=== PATIENT | female | born 1980 | race Caucasian/White ===

== ENCOUNTER 2019-05-19 12:54 | Emergency (ER) | payer OTHER, SELFPAY ==
[2019-05-19 12:56] VITALS: BP 143/82; PULSE 106; RESP 18; TEMP 36.4; O2SAT 97; BMI 39.4
[2019-05-19 13:39] LABS: RBC Urine None Seen (0-5/HPF)
[2019-05-19 14:07] LABS: Bacteria Urine Moderate (10-30); Squamous Epithelial Cell Urine 5-10 /HPF (0-5/HPF); WBC Urine 1-5/HPF (0-5/HPF)
[2019-05-19 14:49] VITALS: BP 111/72; PULSE 90; RESP 18; O2SAT 97
[2019-05-19 15:21] LABS: RBC Urine None Seen (0-5/HPF)
[2019-05-19 15:24] LABS: Appearance Urine UA CLEAR; Bilirubin Urine UA NEGATIVE (NEGATIVE); Color Urine UA YELLOW; Glucose Urine UA NEGATIVE (Negative); Ketones Urine UA TRACE (NEGATIVE); Leukocyte Esterase Urine UA NEGATIVE (NEGATIVE); Nitrite Urine UA NEGATIVE (Negative); Occult Blood Urine UA TRACE-INTACT (Negative); Protein Urine UA 2+ (Negative); Specific Gravity Urine UA 1.025 (1.000-1.035); Urobilinogen Urine UA 0.2 E.U./dL (0.2)
[2019-05-19 15:25] LABS: pH Urine UA 5.5 (4.5-8.0)
[2019-05-19 15:38] LABS: Bacteria Urine Few (2-10); Culture Indicated Urine Cult Not Indicated; Squamous Epithelial Cell Urine 1-5 /HPF (0-5/HPF); WBC Urine 0-1/HPF (0-5/HPF)
[2019-05-19 15:44] LABS: Influenza A - CEPHEID Flu A NEGATIVE (NEGATIVE); Influenza B - CEPHEID Flu B POSITIVE (NEGATIVE)
--- NOTE | 2019-05-19 16:03 | ED.FEVER ---
HPI - Fever <ISAAC Hay - Last Filed: 05/19/19 16:27> General Chief Complaint: Abdominal Pain Stated Complaint: States Flu and Possible Kidney Infection Time Seen by Provider: 05/19/19 14:08 Source: patient and family Mode of arrival: Ambulatory Limitations: no limitations History of Present Illness HPI Narrative: The patient is a 38-year-old female nonsmoker who denies pertinent medical history was a vaccinated for the flu presents with a chief complaint of fevers, muscle aches, back pain for the past 3 days. She states she vomited twice a few days ago. She is concerned about a kidney infection given her back pain which she states is bilateral. She states it comes and goes. Has not taken anything to feel better. Denies any abdominal pain, current nausea vomiting, diarrhea. She complains of a dry cough, denies any ear pain or sore throat or shortness of breath. Denies any dysuria urgency or frequency. Related Data Allergies Allergy/AdvReac Type Severity Reaction Status Date / Time No Known Drug Allergies Allergy Verified 05/19/19 13:00 Review of Systems <ISAAC Hay - Last Filed: 05/19/19 16:27> Review of Systems Narrative: GENERAL: See HPI HEENT: Denies sinus pain, ear pain, sore throat, difficulty swallowing, dizziness. RESPIRATORY: Denies dyspnea, cough, wheezing, hemoptysis, sputum. CARDIOVASCULAR: Denies chest pain, palpitations, orthopnea, edema, GASTROINTESTINAL: Denies nausea, vomiting, abdominal pain, diarrhea, constipation, melena. : See HPI MUSCULOSKELETAL: denies weakness, joint pain, or bony pain SKIN: Denies rash, skin lesions, or other NEUROLOGIC: Denies weakness, headache, numbness, change in speech, confusion, seizures, incoordination. PSYCHIATRIC: No concerning psychosocial issues. 12 point review of systems is negative except for those stated above Patient History <ISAAC Hay - Last Filed: 05/19/19 16:27> Social History Smoking Status: Never smoker Smoking Status: Never smoker alcohol intake frequency: holidays/special occasions only Substance Use Type: does not use Exam <ISAAC Hay - Last Filed: 05/19/19 16:27> Narrative Exam Narrative: GENERAL: This is a well-nourished, well-developed patient, in no acute distress HEAD: Atraumatic. Normocephalic. No temporal or scalp tenderness. EYES: Pupils equal round and reactive. Extraocular motions intact. No scleral icterus. No injection or drainage. ENT: Nose without bleeding, purulent drainage or septal hematoma. Throat without erythema, tonsillar hypertrophy or exudate. Uvula midline. Airway patent. NECK: Trachea midline. No JVD or lymphadenopathy. Supple, nontender, no meningeal signs. CARDIOVASCULAR: Regular rate and rhythm without murmurs, gallops, or rubs. RESPIRATORY: Clear to auscultation. Breath sounds equal bilaterally. No wheezes, rales, or rhonchi. Dry cough. No increased respiratory effort. Speaking full sentences. GASTROINTESTINAL: Abdomen soft, non-tender, nondistended. No hepato-splenomegaly, or palpable masses. No guarding. EXTREMITIES: No clubbing, cyanosis, or edema. No joint tenderness, effusion, or edema noted. BACK: Nontender without deformity or crepitance. No flank tenderness. No CVA tenderness bilaterally. NEURO: AOx3. SKIN: No rash or erythema on visible skin Initial Vital Signs Initial Vital Signs: Vital Signs Temperature 97.6 F 05/19/19 12:56 Pulse Rate 106 H 05/19/19 12:56 Respiratory Rate 18 05/19/19 12:56 Blood Pressure 143/82 H 05/19/19 12:56 Pulse Oximetry 97 05/19/19 12:56 <Sosa Ribera MD - Last Filed: 05/19/19 18:00> Initial Vital Signs Initial Vital Signs: Vital Signs Temperature 97.6 F 05/19/19 12:56 Pulse Rate 106 H 05/19/19 12:56 Respiratory Rate 18 05/19/19 12:56 Blood Pressure 143/82 H 05/19/19 12:56 Pulse Oximetry 97 05/19/19 12:56 Course <ISAAC Hay - Last Filed: 05/19/19 16:27> Orders Ordered: ED Orders 05/19/19 13:35 Urine Microscopic Stat 05/19/19 14:44 Complete Blood Count AUTO DIFF Stat Comprehensive Metabolic Panel Stat 05/19/19 15:00 Urinalysis and Microscopic Stat 05/19/19 15:11 Influenza A & B (PCR) Stat Vital Signs Vital signs: Vital Signs - 8 hr 05/19/19 12:56 05/19/19 14:49 05/19/19 16:27 Temperature 97.6 F Pulse Rate 106 H 90 84 Respiratory Rate 18 18 18 Blood Pressure 143/82 H Blood Pressure [Left Arm] 111/72 111/77 Pulse Oximetry 97 97 97 <Sosa Ribera MD - Last Filed: 05/19/19 18:00> Orders Ordered: ED Orders 05/19/19 13:35 Urine Microscopic Stat 05/19/19 14:44 Complete Blood Count AUTO DIFF Stat Comprehensive Metabolic Panel Stat 05/19/19 15:00 Urinalysis and Microscopic Stat 05/19/19 15:11 Influenza A & B (PCR) Stat Vital Signs Vital signs: Vital Signs - 8 hr 05/19/19 12:56 05/19/19 14:49 05/19/19 16:27 Temperature 97.6 F Pulse Rate 106 H 90 84 Respiratory Rate 18 18 18 Blood Pressure 143/82 H Blood Pressure [Left Arm] 111/72 111/77 Pulse Oximetry 97 97 97 MDM - Fever <MARTIN Hay - Last Filed: 05/19/19 16:27> Lab Data Labs: Lab Results 05/19/19 05/19/19 05/19/19 Range/Units 13:35 15:00 15:11 Urine Color Yellow Urine Appearance Clear Urine pH 5.5 (4.5-8.0) Ur Specific [place] 1.025 (1.000-1.035) Urine Protein 2+ H (Negative) Urine Glucose (UA) Negative (Negative) g/dL Urine Ketones Trace H (NEGATIVE) Urine Occult Blood Trace-intact (Negative) Urine Nitrate Negative (Negative) Urine Bilirubin Negative (NEGATIVE) Urine Urobilinogen 0.2 (0.2) E.U./dL Ur Leukocyte Esterase Negative (NEGATIVE) Urine RBC None seen None seen (0-5/HPF) Urine WBC 1-5/hpf 0-1/hpf (0-5/HPF) Ur Squamous Epith Cells 5-10 /hpf H 1-5 /hpf (0-5/HPF) Urine Bacteria Moderate (10-30) H Few (2-10) H (None) Ur Culture Indicated? Culture not indicate Cult not indicated Micro UA Comment Influenza A (RT-PCR) Flu a negative (NEGATIVE) Influenza B (RT-PCR) Flu b positive H (NEGATIVE) Point of Care Testing Test Results Negative Urine Dip Bedside Urine Glucose 100 mg/dl Bedside Urine Bilirubin + 1 Bedside Urine Ketone +/- 5 Urine Specific [place] 1.025 Bedside Urine Occult Blood - Negative Bedside Urine pH 6.0 Bedside Urine Protein ++ 100 Bedside Urine Urobilinogen +/- 1mg Bedside Urine Nitrite - Negative Bedside Urine Leukocytes +/- 15 Esterase MDM Narrative Medical decision making narrative: The patient is a 38-year-old female who presents with a chief complaint of fevers, concern for kidney infection related to back pain. She has no signs of infection on urinalysis, decreasing my suspicion for pyelonephritis. She was very concerned about kidney function, then states that she does not want labs done. I believe that her back pain and muscle aches may be related to her positive. She test positive for influenza B. She is out of the Tamiflu window. Discussed at length pushing fluids, [id number] measures as needed and able, follow-up with primary care provider. Discussed coming back to the ER for any acute concerns. Patient has no questions or concerns upon discharge and states understanding of return precautions as well as follow-up care. <Sosa Ribera MD - Last Filed: 05/19/19 18:00> Lab Data Labs: Lab Results 05/19/19 05/19/19 05/19/19 Range/Units 13:35 15:00 15:11 Urine Color Yellow Urine Appearance Clear Urine pH 5.5 (4.5-8.0) Ur Specific [place] 1.025 (1.000-1.035) Urine Protein 2+ H (Negative) Urine Glucose (UA) Negative (Negative) g/dL Urine Ketones Trace H (NEGATIVE) Urine Occult Blood Trace-intact (Negative) Urine Nitrate Negative (Negative) Urine Bilirubin Negative (NEGATIVE) Urine Urobilinogen 0.2 (0.2) E.U./dL Ur Leukocyte Esterase Negative (NEGATIVE) Urine RBC None seen None seen (0-5/HPF) Urine WBC 1-5/hpf 0-1/hpf (0-5/HPF) Ur Squamous Epith Cells 5-10 /hpf H 1-5 /hpf (0-5/HPF) Urine Bacteria Moderate (10-30) H Few (2-10) H (None) Ur Culture Indicated? Culture not indicate Cult not indicated Micro UA Comment Influenza A (RT-PCR) Flu a negative (NEGATIVE) Influenza B (RT-PCR) Flu b positive H (NEGATIVE) Point of Care Testing Test Results Negative Urine Dip Bedside Urine Glucose 100 mg/dl Bedside Urine Bilirubin + 1 Bedside Urine Ketone +/- 5 Urine Specific [place] 1.025 Bedside Urine Occult Blood - Negative Bedside Urine pH 6.0 Bedside Urine Protein ++ 100 Bedside Urine Urobilinogen +/- 1mg Bedside Urine Nitrite - Negative Bedside Urine Leukocytes +/- 15 Esterase Discharge Plan Departure Patient Disposition: Home Clinical Impression: Influenza B Discharge Date/Time: 05/19/19 16:31 Instructions: DI for Influenza -- Adult Activity Restrictions/Additional Instructions: You tested positive for flu B today. Please rest, push fluids use [id number] measures as needed and able. Please follow-up with primary care provider in a few days. Please come back to the emergency department for any acute concerns such as inability keep down fluids shortness of breath etc. Referrals: Santos Melendez CNP [Primary Care Provider] - Stand Alone Forms: Work Release Note
[2019-05-19 16:27] VITALS: BP 111/77; PULSE 84; RESP 18; O2SAT 97
== END 2019-05-19 16:31 | disposition home or self-care (01) ==
PROVIDERS: Emergency Medicine; Emergency Provider Nurse Practitioner Family; PCP Registered Nurse Diabetes Educator
DX: J10.1 Influenza due to other identified influenza virus with other respiratory manifestations (principal)
CPT/HCPCS: 81001; 81003; 81015; 81025; 87502; 99282

== ENCOUNTER 2020-02-05 09:53 | Emergency (ER) | payer OTHER, SELFPAY ==
[2020-02-05 10:02] VITALS: BP 131/101; PULSE 72; RESP 16; TEMP 36.7; O2SAT 100; BMI 43.6
[2020-02-05] MEDS: ACETAMINOPHEN 325 MG TABLET 975 MG PO (10:07)
[2020-02-05] MEDS: IBUPROFEN 400 MG TABLET 800 MG PO (10:07)
--- NOTE | 2020-02-05 10:26 | ED_ITS ---
HPI - Back Pain/Injury General Chief Complaint: Back Pain/Injury Stated Complaint: Woke up with sore back . feels like its pinching Time Seen by Provider: 02/05/20 10:10 Source: patient Mode of arrival: Ambulatory Limitations: no limitations History of Present Illness HPI Narrative: The patient is a 39-year-old female who presents with sudden onset of low back pain. She thinks that she picked up her quite sturdy 4-year-old who weighs about 50 lb 2 days ago and twisted and put him on the deck. Yesterday she started to notice some increased pain and last night when she was rolling over in bed cocaine pain became quite severe she had to get up in use the restroom and was unable to walk. She has no changes in bowel or bladder habits. Now that she has been up and moving and has Toradol and Tylenol in her system she is feeling better. She seems to be able to stand. No numbness tingling or weakness in her leg at this time. She said previously whenever she stood on her legs she was unable to do so due to pain MD Complaint: back pain Onset (ago): day(s) Duration: now resolved Location: lumbar spine Radiation: right leg Related Data Previous Rx's Medication Instructions Recorded cyclobenzaprine 5 mg PO TID PRN #10 tab 02/05/20 Allergies Allergy/AdvReac Type Severity Reaction Status Date / Time No Known Drug Allergies Allergy Verified 02/05/20 10:05 Review of Systems Review of Systems Narrative: GENERAL: Denies chills, fatigue, malaise, fever, sweats, travel HEENT: Denies sinus pain, ear pain, sore throat, difficulty swallowing, neck pain RESPIRATORY: Denies dyspnea, cough, wheezing, hemoptysis, sputum. CARDIOVASCULAR: Denies chest pain, palpitations, orthopnea, edema GASTROINTESTINAL: Denies nausea, vomiting, abdominal pain, diarrhea, constipation, melena. : Denies dysuria, frequency, incontinence, hematuria, urinary retention, flank pain. MUSCULOSKELETAL: Back pain see HPI SKIN: No rash, no erythema, no pruritus NEUROLOGIC: Denies weakness, dizziness, headache, numbness, change in speech, confusion PSYCHIATRIC: No concerning psychosocial issues. 12 point review of systems is negative except for those stated above and HPI Patient History Social History (Reviewed 02/05/20 @ 10:37 by TRESA Steele Smoking Status: Never smoker Smoking Status: Never smoker alcohol intake frequency: holidays/special occasions only Substance Use Type: does not use Exam Initial Vital Signs Initial Vital Signs: Vital Signs Temperature 98.0 F 02/05/20 10:02 Pulse Rate 72 02/05/20 10:02 Respiratory Rate 16 02/05/20 10:02 Blood Pressure 131/101 H 02/05/20 10:02 Pulse Oximetry 100 02/05/20 10:02 GENERAL: Overweight female and in no acute distress. HEENT: Head atraumatic,EOMI, pupils reactive, face symmetric, moist mucous membranes CARDIOVASCULAR: Peripheral pulses intact RESPIRATORY: Speaks in full sentences without difficulty EXTREMITIES: Normal range of motion, no clubbing or edema. Neurovascularly intact BACK: No midline tenderness, able to stand no pain symptoms seemed to be completely resolved NEUROLOGICAL: Alert and oriented x4.Normal gait and speech. Cranial nerves II through XII grossly intact. SKIN: Warm, dry, no laceration, no petechiae, no rashes or lesions. Course Orders Ordered: Discontinued Medications Acetaminophen (Tylenol) 975 mg PO NOW ONE Stop: 02/05/20 10:03 Last Admin: 02/05/20 10:07 Dose: 975 mg Documented by: CHERI Ibuprofen (Advil) 800 mg PO NOW ONE Stop: 02/05/20 10:03 Last Admin: 02/05/20 10:07 Dose: 800 mg Documented by: CHERI Vital Signs Vital signs: Vital Signs - 8 hr 02/05/20 10:02 02/05/20 10:45 Temperature 98.0 F Pulse Rate 72 70 Respiratory Rate 16 16 Blood Pressure 131/101 H 130/80 Pulse Oximetry 100 97 Discharge Plan Departure Patient Disposition: Home Clinical Impression: Strain of lumbar region Qualifiers: Encounter type: initial encounter Qualified Code(s): S39.012A - Strain of muscle, fascia and tendon of lower back, initial encounter Discharge Date/Time: 02/05/20 10:55 Instructions: DI for Back Strain or Sprain Activity Restrictions/Additional Instructions: *You have been diagnosed with acute low back sprain *What to do: At this time no indication for imaging. Recommend no heavy lifting nothing more than 10-15 lb until back has completely healed. Recommend heating pad and light stretching. No strenuous activity. You may require physical therapy and possibly outpatient MRI if her symptoms continue *Continue to take medications as directed Ibuprofen 800 mg every 8 hours if needed for [id number] pain Flexeril 5 mg every 8 hours if needed for muscle spasm, this does cause drowsiness *Follow up with your primary care provider in 2-3 days *Return to ER if you should have changes in bowel or bladder habits, increased w eakness, increased pain or any new, worsening or concerning symptoms Prescriptions: New cyclobenzaprine 5 mg tablet 5 mg PO TID PRN (Reason: muscle spasm) Qty: 10 RF: 0 Referrals: Santos Melendez ARNP [Primary Care Provider] -
[2020-02-05 10:45] VITALS: BP 130/80; PULSE 70; RESP 16; O2SAT 97
== END 2020-02-05 10:55 | disposition home or self-care (01) ==
PROVIDERS: Emergency Provider Emergency Medicine; PCP Registered Nurse Diabetes Educator
DX: S39.012A Strain of muscle, fascia and tendon of lower back, initial encounter (principal)
CPT/HCPCS: 99282; 99283